=== PATIENT | male | born 1945 | race Caucasian/White ===

== ENCOUNTER 2018-01-05 14:41 | Outpatient (CLI) | payer MEDICARE, MEDICAID | END 2018-01-05 23:59 | disposition home or self-care (01) | LOC: WOU 14:41 | PROVIDERS: ATTEND Podiatrist Foot & Ankle Surgery | DX: M25.571 Pain in right ankle and joints of right foot (principal); R26.89 Other abnormalities of gait and mobility; Z79.82 Long term (current) use of aspirin; Z79.899 Other long term (current) drug therapy; I25.10 Atherosclerotic heart disease of native coronary artery without angina pectoris; Z95.1 Presence of aortocoronary bypass graft; K21.9 Gastro-esophageal reflux disease without esophagitis | CPT/HCPCS: G0463; Z7610 ==